=== PATIENT | female | born 1950 | race Hispanic/Latino ===

== ENCOUNTER 2016-08-11 20:07 | Emergency (ER) | payer MEDICARE, OTHER ==
[2016-08-11] MEDS ORDERED: NORCO 5/325 PO ONE (23:33)
--- NOTE | 2016-08-11 23:33 | Emergency Department Report ---
ED Lower Extremity HPI - General Chief Complaint: Fall Stated Complaint: FELL/CANT WALK Time Seen by Provider: 08/11/16 23:09 Source: patient Mode of arrival: Wheelchair Limitations: No Limitations - History of Present Illness Initial Comments: 66-year-old female past medical history diabetes, vertigo, high cholesterol presents with complaint of left foot and left ankle pain status post mechanical fall. Patient states she was walking uphill near her home turned got her leg caught in her cane and fell down. Patient states she felt immediate pain in her left foot/left ankle region. The patient was helped up by bystanders and brought home by bystanders. Patient states that she could not walk at home which is why she came to the hospital, her is at bedside and stated he called EMS to bring her to the ED for evaluation, patient is concerned she may have broken her foot or ankle. Patient denies any loss of consciousness denies any presyncopal symptoms before the fall, as per the patient's history she tripped and fell. Patient is awake alert and oriented 3 sustained no abrasions or lacerations denies any other injuries. MD Complaint: ankle injury, foot injury Onset/Timin -: hour(s) Injury: Ankle: Left, Foot: Left Type of Injury: other (fall) Place: street/outdoors Severity: moderate Severity scale (0 -10): 6 Context: fall Associated Symptoms: snap/pop sensation, swelling, numbness, unable to bear weight - Related Data Previous Rx's Medication Instructions Recorded Last Taken Type Ofloxacin 0.3% [Floxin Otic] 10 ml OT BID #1 bottle 11/14/15 Unknown Rx Acetaminophen/Codeine [Tylenol 1 tab PO Q8H PRN #9 tab 08/12/16 Unknown Rx /Codeine # 3 tab] Ibuprofen [Motrin] 400 mg PO Q8H PRN #15 tablet 08/12/16 Unknown Rx Allergies Allergy/AdvReac Type Severity Reaction Status Date / Time No Known Allergies Allergy Unverified 11/13/15 22:28 ED Review of Systems ROS: Stated complaint: FELL/CANT WALK Other details as noted in HPI Constitutional: denies: chills, fever Eyes: denies: eye pain, eye discharge, vision change ENT: denies: ear pain, throat pain Respiratory: denies: cough, shortness of breath, wheezing Cardiovascular: denies: chest pain, palpitations Endocrine: no symptoms reported Gastrointestinal: denies: abdominal pain, nausea, diarrhea Genitourinary: denies: urgency, dysuria, discharge Musculoskeletal: as per HPI. denies: back pain, joint swelling, arthralgia Skin: denies: rash, lesions Neurological: denies: headache, weakness, paresthesias Psychiatric: denies: anxiety, depression Hematological/Lymphatic: denies: easy bleeding, easy bruising ED Past Medical Hx - Past Medical History Previous Medical History?: Yes Hx Diabetes: Yes (henri) Additional medical history: high cholesterol - Surgical History Past Surgical History?: Yes Additional Surgical History: hysterectomy - Social History Smoking Status: Never Smoker Substance Use Type: None - Medications Home Medications: Home Medications Medication Instructions Recorded Confirmed Last Taken Type Ofloxacin 0.3% [Floxin Otic] 10 ml OT BID #1 bottle 11/14/15 Unknown Rx Acetaminophen/Codeine [Tylenol 1 tab PO Q8H PRN #9 tab 08/12/16 Unknown Rx /Codeine # 3 tab] Ibuprofen [Motrin] 400 mg PO Q8H PRN #15 tablet 08/12/16 Unknown Rx ED Physical Exam - General Limitations: No Limitations General appearance: alert, in no apparent distress - Head Head exam: Present: atraumatic, normocephalic - Eye Eye exam: Present: normal appearance, PERRL, EOMI - ENT ENT exam: Present: mucous membranes moist - Neck Neck exam: Present: normal inspection - Respiratory Respiratory exam: Present: normal lung sounds bilaterally. Absent: respiratory distress - Cardiovascular Cardiovascular Exam: Present: regular rate, normal rhythm. Absent: systolic murmur, diastolic murmur, rubs, gallop - GI/Abdominal GI/Abdominal exam: Present: soft, normal bowel sounds - Extremities Exam Extremities exam: Present: normal inspection - Expanded Lower Extremity Exam Left Hip exam: Present: normal inspection, full ROM Upper Leg exam: Present: normal inspection, full ROM Knee exam: Present: normal inspection, full ROM Lower Leg exam: Present: normal inspection, full ROM Ankle exam: Present: full ROM, tenderness Foot/Toe exam: Present: tenderness (at 5th metatarsal), swelling, tenderness at base of 5th metatarsal Neuro vascular tendon exam: Present: no vascular compromise (distal dorsalis pedis and posteriro tibial pulses intact) Gait: Positive: unable to bear weight 1 - mild swelling and significant pain on palpation here - Back Exam Back exam: Present: normal inspection - Neurological Exam Neurological exam: Present: alert, oriented X3, CN II-XII intact, abnormal gait - Psychiatric Psychiatric exam: Present: normal affect, normal mood - Skin Skin exam: Present: warm, dry, intact, normal color. Absent: rash ED Course Vital Signs 08/11/16 20:46 Temperature 98.3 F Pulse Rate 100 H Respiratory 18 Rate Blood Pressure 126/72 O2 Sat by Pulse 98 Oximetry ED Lower Extremity MDM - Medical Decision Making A/P: Left ankle/foot sprain, possible fifth metatarsal injury 1-x-ray ankle and foot shows no fractures 2-Motrin, Tylenol 3 when necessary 3-although x-rays show no fractures patient has significant pain if fifth metatarsal. Distal pulses are intact distal sensation is intact. Will place in short left posterior foot/ankle splint and crutches, follow-up with orthopedics and podiatry. Nonweightbearing for at least 3-5 days, I am encouraging patient to bear weight after 3-5 days as tolerated. 4-referral to orthopedics and podiatry Critical care attestation.: If time is entered above; I have spent that time in minutes in the direct care of this critically ill patient, excluding procedure time. ED Disposition Clinical Impression: Sprain of foot, left Qualifiers: Encounter type: initial encounter Qualified Code(s): S93.602A - Unspecified sprain of left foot, initial encounter Left ankle sprain Qualifiers: Encounter type: initial encounter Involved ligament of ankle: tibiofibular ligament Qualified Code(s): S93.432A - Sprain of tibiofibular ligament of left ankle, initial encounter Disposition: TO HOME OR SELFCARE Is pt being admited?: No Does the pt Need Aspirin: No Condition: Stable Instructions: Foot Sprain (ED), Ankle Sprain (ED), Splint Care (ED), Crutch Instructions (ED) Prescriptions: Acetaminophen/Codeine [Tylenol /Codeine # 3 tab] 1 tab PO Q8H PRN #9 tab PRN Reason: Pain Ibuprofen [Motrin] 400 mg PO Q8H PRN #15 tablet PRN Reason: Pain Referrals: MARIA GUADALUPE EMMANUEL DPM [Staff Physician] - 3-5 Days JUVENAL GALLARDO MD [Staff Physician] - 3-5 Days Forms: Accompanied Note Time of Disposition: 00:10
--- NOTE | 2016-08-11 23:59 | XRay Report ---
FINAL REPORT PROCEDURE: XR FOOT 3 LT TECHNIQUE: LEFT foot radiographs, AP, lateral, and oblique views. CPT 22750 HISTORY: left foot pain COMPARISON: No prior studies are available for comparison. FINDINGS: Fracture (s) and/or Dislocation(s): None . Alignment: Normal . Joint space(s): Mild narrowing of the joint spaces. Soft tissues: Normal . Bone mineralization: Normal . Foreign bodies: None . Calcaneal spurring: None . IMPRESSION: There is no evidence of an acute fracture dislocation. Mild arthritis..
--- NOTE | 2016-08-12 | XRay Report ---
FINAL REPORT PROCEDURE: XR ANKLE 3 LT TECHNIQUE: LEFT ankle radiographs, AP, lateral, and oblique views. CPT 37327 HISTORY: left ankle pain COMPARISON: No prior studies are available for comparison. FINDINGS: Fracture (s) and/or Dislocation(s): None. Alignment: Normal. Joint space(s): Normal. Soft tissues: Normal. Bone mineralization: Normal. Foreign bodies: None. Calcaneal spurring: None. IMPRESSION: Normal Examination.
[2016-08-12 01:11] VITALS: BP 126/78
== END 2016-08-12 00:30 | disposition home or self-care (01) ==
LOC: ED 20:07
DX: S93.432A Sprain of tibiofibular ligament of left ankle, initial encounter (principal); S93.602A Unspecified sprain of left foot, initial encounter; W18.39XA Other fall on same level, initial encounter; Y93.01 Activity, walking, marching and hiking; Y99.8 Other external cause status; Y92.488 Other paved roadways as the place of occurrence of the external cause

== ENCOUNTER 2019-06-23 00:12 | Emergency (ER) | payer MEDICARE, OTHER ==
[2019-06-23 01:16] VITALS: BP 141/95
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
[2019-06-23] MEDS ORDERED: TETANUS,DIPH,PERTUSS(ACELL) VACCINE 0.5 ML SYRINGE IM ONE (02:10)
== END 2019-06-23 02:46 | disposition home or self-care (01) ==
LOC: ED 00:12
DX: S01.112A Laceration without foreign body of left eyelid and periocular area, initial encounter (principal); S09.90XA Unspecified injury of head, initial encounter; E11.9 Type 2 diabetes mellitus without complications; E78.00 Pure hypercholesterolemia, unspecified; Z90.710 Acquired absence of both cervix and uterus; W19.XXXA Unspecified fall, initial encounter; Y93.89 Activity, other specified; Y92.89 Other specified places as the place of occurrence of the external cause; Y99.8 Other external cause status
CPT/HCPCS: 70450; 70486; 90471; 90715